=== PATIENT | male | born 1955 | race Caucasian/White ===

== ENCOUNTER 2017-12-26 18:28 | Emergency (ER) | payer OTHER ==
[~2017-12-26] VITALS: Ht 185.4 cm; Wt 68.0 kg
--- NOTE | ~2017-12-26 | EKG ---
[address] [address] ELECTROCARDIOGRAM REPORT Name: NISHANT HERNANDEZ Room #: [facility] Claire#: [id number] Admission: 12/26/17 Attend Phys: Discharge: Date of : 59 Report #: [id number] THIS REPORT FOR: //name// [facility] ED Test Date: 2017-12-26 Test Time: 18:46:50 Pat Name: NISHANT HERNANDEZ Department: Room: Gender: Community Liaison Officer: ZOYA : 1955 Requested By: Giovanny Arias Order Number: [id number] MD: Jose Sampson Measurements Intervals [place] Rate: 66 P: 66 ME: 138 QRS: 25 QRSD: 94 T: 46 QT: 415 QTc: 435 Interpretive Statements Sinus rhythm No previous ECG available for comparison Electronically Signed On 12-26-2017 19:28:29 [employer]OR [employer]END[employer] by Jose Sampson [email or web address] <ELECTRONICALLY SIGNED> By: Jose Sampson MD 12/26/17 1928 1846 1846 Jose Sampson MD /EPI
[2017-12-27] MEDS ORDERED: ACCUNEB SO1.25 MG/1 INH (01:32)
[2017-12-27] MEDS ORDERED: CYCLOBENZAPRINE5 MG PO (01:33)
[2017-12-27] MEDS ORDERED: COZAAR 50 MG TA50 M2 PO (01:33)
[2017-12-27] MEDS ORDERED: FINASTERIDE5 MG PO (01:34)
[2017-12-27] MEDS ORDERED: PROTONIX40 M1 PO (01:35)
[2017-12-27] MEDS ORDERED: ADVAIR HFA 230M12 GM INH (01:36)
== END 2017-12-26 20:20 | disposition home or self-care (01) ==
LOC: ER 18:28
DX: R41.0 Disorientation, unspecified (principal); I10 Essential (primary) hypertension; K74.60 Unspecified cirrhosis of liver; I21.9 Acute myocardial infarction, unspecified; Z87.891 Personal history of nicotine dependence

== ENCOUNTER 2017-12-27 01:24 | Emergency (ER) | payer OTHER ==
[~2017-12-27] VITALS: Ht 185.4 cm; Wt 68.0 kg
--- NOTE | ~2017-12-27 | EKG ---
[place] [address] [facility] [email or web address] [address] ELECTROCARDIOGRAM REPORT Name: NISHANT HERNANDEZ Room #: [facility]#: [id number] Admission: 12/27/17 Attend Phys: Discharge: 12/27/17 Date of : 59 Report #: [id number] THIS REPORT FOR: //name// [facility] ED Test Date: 2017-12-27 Test Time: 01:27:23 Pat Name: NISHANT HERNANDEZ Department: Room: Gender: Unclaimed Property Manager: [facility] : 1955 Requested By: Pradip Castanon Order Number: [id number] MD: Luis Fernando Norman Measurements Intervals [place] Rate: 63 P: 82 ND: 173 QRS: 19 QRSD: 91 T: 60 QT: 435 QTc: 446 Interpretive Statements Sinus rhythm Atrial premature complex Minimal ST elevation, inferior leads Compared to ECG 12/26/2017 18:46:50 Atrial premature complex(es) now present Electronically Signed On 12-27-2017 8:03:25 [employer]AREHOUSE TEAM MEMBER by Luis Fernando Norman [email or web address] <ELECTRONICALLY SIGNED> By: Luis Fernando Norman MD, [facility] 12/27/17 0803 0127 012 Luis Fernando Norman MD, [facility] /EPI
[2017-12-27] MEDS ORDERED: ACCUNEB SO1.25 MG/1 INH (01:32)
[2017-12-27] MEDS ORDERED: COZAAR 50 MG TA50 M2 PO (01:33)
[2017-12-27] MEDS ORDERED: CYCLOBENZAPRINE5 MG PO (01:33)
[2017-12-27] MEDS ORDERED: FINASTERIDE5 MG PO (01:34)
[2017-12-27] MEDS ORDERED: PROTONIX40 M1 PO (01:35)
[2017-12-27] MEDS ORDERED: ADVAIR HFA 230M12 GM INH (01:36)
[2017-12-27 02:01] LABS: ABSOLUTE NEUTROPHILS 6.2 thou/uL (1.4-8.2); BASOPHILS 0.8 % (0.0-2.0); EOSINOPHILS 0.1 % (0.0-3.0); HEMATOCRIT 41.5 % (42.0-52.0); HEMOGLOBIN 14.2 gm/dL (14.0-18.0); LYMPHOCYTES 22.7 % (24.0-44.0); MCH 32.3 pg (26.0-34.0); MCHC 34.1 g/dL (28.0-37.0); MCV 94.6 fL (80.0-100.0); MONOCYTES 6.7 % (1.0-8.0); PLATELET COUNT 170 thou/uL (150-400); POLYS 69.7 % (36.0-66.0); RBC 4.39 mil/uL (4.50-6.00); RDW 14.1 % (10.5-14.5); WBC 8.8 thou/uL (4.0-11.0)
[2017-12-27 02:03] LABS: ANION GAP 14 mmol/L (7-16); BUN 23 mg/dL (7-18); CALCIUM 9.8 mg/dL (8.5-10.1); CHLORIDE 99 mmol/L (98-107); CO2 22 mmol/L (21-32); CREATININE 1.4 mg/dL (0.7-1.3); GLUCOSE 108 mg/dL (74-106); SODIUM 135 mmol/L (136-145)
[2017-12-27 02:12] LABS: ALBUMIN 4.3 g/dL (3.4-5.0); DIRECT BILIRUBIN 0.3 mg/dL (<0.1-0.3); SGOT 40 U/L (15-37); SGPT 68 U/L (30-65); TOTAL BILIRUBIN 1.1 mg/dL (<0.1-1.0); TROPONIN-I < 0.04 ng/mL (<0.06)
== END 2017-12-27 03:52 | disposition home or self-care (01) ==
LOC: ER 01:24
PROVIDERS: Emergency Medicine
DX: G89.29 Other chronic pain (principal); R07.9 Chest pain, unspecified; I10 Essential (primary) hypertension; I25.2 Old myocardial infarction; Z87.891 Personal history of nicotine dependence